=== PATIENT | male | born 1960 | race Caucasian/White ===

== ENCOUNTER → 2020-10-03 | Outpatient (CLI) | payer BC | LOC: M.ULTRA 09:00 | PROVIDERS: ATTEND Family Medicine | DX: Z72.0 Tobacco use (principal) ==

== ENCOUNTER → 2020-10-16 | Outpatient (CLI) | payer BC | LOC: M.CT 15:50 | PROVIDERS: ATTEND Family Medicine | DX: Z12.2 Encounter for screening for malignant neoplasm of respiratory organs (principal); Z72.0 Tobacco use ==